=== PATIENT | female | born 1970 | race Caucasian/White ===

== ENCOUNTER → 2016-11-06 | Outpatient (CLI) | payer BC ==
[~2016-11-06] MED LIST: CIPR500T4 PO; LEVO125T71 PO
--- NOTE | 2016-11-06 14:38 | RADRPT ---
PROCEDURE: XR Abdomen. CLINICAL INDICATION: Abdomen pain. TECHNIQUE: AP supine abdomen x-ray. COMPARISON: Abdomen radiograph dated 01/25/2015. CT scan of the abdomen and pelvis dated 5. FINDINGS: The bowel gas pattern is normal. There is no evidence of obstruction. There are multiple small calcifications overlying both kidneys. There is a 0.2 cm calcification ove rlying the right ureterovesicle junction. There is no other urinary tract calculus. The osseus structures are unremarkable. IMPRESSION: 1. Multiple small bilateral renal calculi. 2. Calcification measuring 0.2 cm overlying the right ureterovesicle junction which may be a calcul us or other calcification. 3. Otherwise unremarkable study. RPTAT: QQ .Walker Cevallos MD, Date Time Electronically viewed and signed by .Walker Cevallos MD, on 11/06/2016 14:37 .R/
== END | disposition home or self-care (01) ==
LOC: RAD 10:00
PROVIDERS: ATTEND Urology
DX: N39.0 Urinary tract infection, site not specified (principal); R31.0 Gross hematuria; N20.0 Calculus of kidney
CPT/HCPCS: 74000; 87086

== ENCOUNTER 2016-12-24 21:10 | Emergency (ER) | payer BC ==
[~2016-12-24] VITALS: Ht 162.6 cm; Wt 79.5 kg
[2016-12-24 21:13] VITALS: Ht 162.6 cm; Wt 79.5 kg
[2016-12-24] MEDS ORDERED: ONDANSETRON 4 MG INJ IV STA (21:42)
[2016-12-24] MEDS ORDERED: morphine 4 MG/ML VIAL IV STA (21:42)
[2016-12-24] MEDS ORDERED: KETOROLAC 15 MG INJ IV STA ×2 (21:42→23:59)
[2016-12-24] MEDS ORDERED: SOD CHLORIDE 0.9% 1,000 ML IV STA (21:42)
[2016-12-24 21:54] LABS: URINE BLOOD (Dip) POC 3+ (NEGATIVE)
[2016-12-24 22:21] LABS: ADD SCAN DIFF NO
[2016-12-24 22:27] LABS: BASOPHIL # 0.1 10^3/ul (0.0-0.1); BASOPHILS % 0.7 % (0.0-2.0); EOSINOPHILS # 0.2 10^3/ul (0.0-0.5); EOSINOPHILS % 2.2 % (0.0-7.0); HEMATOCRIT 34.6 % (37.0-47.0); HEMOGLOBIN 10.9 g/dl (12.0-16.0); LYMPHOCYTES # 1.5 10^3/ul (0.8-2.9); LYMPHOCYTES % 16.3 % (15.0-51.0); MEAN CORPUSCULAR HEMOGLOBIN 28.8 pg (29.0-33.0); MEAN CORPUSCULAR HGB CONC 31.5 g/dl (32.0-37.0); MEAN CORPUSCULAR VOLUME 91.5 fl (82.0-101.0); MONOCYTE # 0.6 10^3/ul (0.3-0.9); MONOCYTES % 6.6 % (0.0-11.0); NEUTROPHIL # 6.7 10^3/ul (1.6-7.5); PLATELET COUNT 220 10^3/UL (140-415); RED BLOOD COUNT 3.78 10^6/ul (4.20-5.40); RED CELL DISTRIBUTION WIDTH 14.4 % (11.5-14.5); WHITE BLOOD COUNT 9.1 10^3/ul (4.8-10.8)
[2016-12-24 22:39] LABS: ALBUMIN 4.3 g/dl (3.3-4.9)
[2016-12-24 22:41] LABS: CREATININE 0.95 mg/dl (0.44-1.00)
[2016-12-24 22:42] LABS: ALBUMIN/GLOBULIN RATIO 1.3; BILIRUBIN,INDIRECT 0.2 mg/dl (0-1.1); BILIRUBIN,TOTAL 0.2 mg/dl (0.2-1.3); CALCIUM 8.8 mg/dl (8.4-10.2); TOTAL PROTEIN 7.6 g/dl (6.1-8.1)
[2016-12-24] MEDS ORDERED: morphine 2 MG INJ IV ONE (23:00)
--- NOTE | 2016-12-25 00:02 | ERD ---
ER Documentation Chief Complaint Date/Time DATE: 12/25/16 TIME: 00:00 Chief Complaint right flank pain, hxo kidney stones HPI This pleasant 46-year-old female presents to emergency department today with right-sided flank pain radiating to right groin symptoms started at 1400, pain is 9/10 on pain scale. Reports hematuria, nausea, without vomiting. Patient has long history of recurrent nephrolithiasis, patient reports lithotripsy a year and a half ago with stent placement. Patient reports that she was seen November 06, 2016 and had a abdominal x-ray, chart review indicates multiple small bilateral renal calculi calcification measuring 0.2 cm overlying right ureterovesiccle junction which may be a calculus or other calcification otherwise unremarkable study. Patient denies chest pain, shortness of breath, or dizziness. 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 ROS All systems reviewed and are negative except as per history of present illness. Medications Home Meds Active Scripts Hydrocodone/Acetaminophen (Darling 5-325 Tablet) 1 Each Tablet, 1 TAB PO Q6H Y for PAIN, #20 TAB Prov:LAKE,NAREN 12/25/16 Tamsulosin Hcl* (Flomax*) 0.4 Mg Cap.er.24h, 0.4 MG PO QPM, #10 CAP Prov:LAKE,NAREN 12/25/16 Reported Medications Ciprofloxacin Hcl* (Ciprofloxacin Hcl*) 500 Mg Tablet, 500 MG PO BID for 7 Days , TAB 12/07/14 Levothyroxine Sodium* (Levoxyl*) 125 Mcg Tablet, 125 MCG PO AC BREAKFAST, TAB 12/02/14 Allergies Allergies: Coded Allergies: levothyroxine sodium (Verified Allergy, Unknown, PRURITIS, 12/02/14) STATES ALLERTY TO BRAND SYNTHROID, GENERIC IS OKAY PMhx/Soc History of Surgery: Yes Anesthesia Reaction: No Hx Neurological Disorder: No Hx Respiratory Disorders: No Hx Cardiac Disorders: No Hx Psychiatric Problems: No Hx Miscellaneous Medical Probl: Yes (Kidney stones) Hx Alcohol Use: No Hx Substance Use: No Hx Tobacco Use: No Smoking Status: Never smoker Physical Exam Vitals Vitals stable, triage notes reviewed Physical Exam Const: Patient in obvious discomfort, no acute distress Head: Atraumatic Eyes: Normal Conjunctiva ENT: Normal External Ears, Nose and Mouth, mucous membranes moist Neck: Resp: Clear to auscultation bilaterally, diminished bases Cardio: Regular rate and rhythm, no murmurs Abd: Right inguinal tenderness, right CVA tenderness Skin: No petechiae or rashes Back: Right flank tenderness Ext: Neur: Awake and alert Psych: Normal Mood and Affect Results 24 hrs Laboratory Tests Test 12/24/16 21:50 12/24/16 21:55 12/24/16 23:58 White Blood Count 9.110^3/ul Red Blood Count 3.7810^6/ul Hemoglobin 10.9g/dl Hematocrit 34.6% Mean Corpuscular Volume 91.5fl Mean Corpuscular Hemoglobin 28.8pg Mean Corpuscular Hemoglobin Concent 31.5g/dl Red Cell Distribution Width 14.4% Platelet Count 69485^3/UL Mean Platelet Volume 11.0fl Neutrophils % 74.0% Lymphocytes % 16.3% Monocytes % 6.6% Eosinophils % 2.2% Basophils % 0.7% Nucleated Red Blood Cells % 0.0/100WBC Neutrophils # 6.710^3/ul Lymphocytes # 1.510^3/ul Monocytes # 0.610^3/ul Eosinophils # 0.210^3/ul Basophils # 0.110^3/ul Nucleated Red Blood Cells # 0.010^3/ul Sodium Level 139mmol/L Potassium Level 4.0mmol/L Chloride Level 102mmol/L Carbon Dioxide Level 25mmol/L Anion Gap 16 Blood Urea Nitrogen 16mg/dl Creatinine 0.95mg/dl Glucose Level 134mg/dl Calcium Level 8.8mg/dl Total Bilirubin 0.2mg/dl Direct Bilirubin 0.00mg/dl Indirect Bilirubin 0.2mg/dl Aspartate Amino Transf (AST/SGOT) 28IU/L Alanine Aminotransferase (ALT/SGPT) 22IU/L Alkaline Phosphatase 54IU/L Total Protein 7.6g/dl Albumin 4.3g/dl Globulin 3.30g/dl Albumin/Globulin Ratio 1.30 Lipase 117U/L Bedside Urine pH (LAB) 5.5 Bedside Urine Protein (LAB) 3+ Bedside Urine Glucose (UA) Negative Bedside Urine Ketones (LAB) Negative Bedside Urine Blood 3+ Bedside Urine Nitrite (LAB) Negative Bedside Urine Leukocyte Esterase (L Negative Urine Color RED Urine Clarity CLOUDY Urine pH 5.5 Urine Specific [place] >=1.030 Urine Ketones NEGATIVE Urine Nitrite NEGATIVE Urine Bilirubin 1+ Urine Ictotest NEGATIVE Urine Urobilinogen 0.2 E.U./dL Urine Leukocyte Esterase NEGATIVE Urine Microscopic RBC >200/HPF Urine Microscopic WBC NONE SEEN/HPF Urine Squamous Epithelial Cells FEW Urine Calcium Oxalate Crystals MODERATE Urine Bacteria FEW Urine Hemoglobin 3+ Urine Glucose NEGATIVE% Urine Total Protein 2+ Current Medications Medications (Trade) Dose Ordered Sig/Geovany Route PRN Reason Start Time Stop Time Status Last Admin Dose Admin Sodium Chloride (NS) 1,000 ml @ 1,000 mls/hr Q1H STAT IV 12/24/16 21:42 12/24/16 22:41 DC 12/24/16 22:01 Morphine Sulfate (morphine) 4 mg ONCE STAT IV 12/24/16 21:42 12/24/16 21:48 DC 12/24/16 22:02 Ondansetron HCl (Zofran Inj) 4 mg ONCE STAT IV 12/24/16 21:42 12/24/16 21:48 DC 12/24/16 22:01 Ketorolac Tromethamine (Toradol) 15 mg ONCE STAT IV 12/24/16 21:42 12/24/16 21:48 DC 12/24/16 22:01 Morphine Sulfate (morphine) 2 mg ONCE ONCE IV 12/24/16 23:00 12/24/16 23:01 DC 12/24/16 22:58 Ketorolac Tromethamine (Toradol) 15 mg ONCE STAT IV 12/24/16 23:59 12/25/16 00:00 DC 12/25/16 00:16 Acetaminophen/ Hydrocodone Bitart (Darling (5/325)) 1 tab ONCE ONCE PO 12/25/16 01:30 12/25/16 01:31 DC 12/25/16 01:14 Procedures/MDM PROCEDURE: CT abdomen and pelvis without contrast. CLINICAL INDICATION: Flank pain. Nephrolithiasis TECHNIQUE: CT scan of the abdomen and pelvis without contrast was performed. Sagittal and coronal reformatted images were obtained from the axial source images. CTDI = 11.98 mGy; DLP = 668.78 mGy-cm COMPARISON: CT 12/07/2014 FINDINGS: Visualized lower thorax: Mild dependent bibasilar subsegmental atelectasis is present. There is no evidence for pleural effusion. Liver, gallbladder, pancreas and spleen: The liver is normal and size, contour and attenuation. There is no evidence for a liver mass or ductal dilatation. The gallbladder is unremarkable. No common bile duct abnormality is demonstrated. The pancreas is unremarkable. The spleen is normal in size. Adrenal glands and genitourinary system: The adrenal glands are normal bilaterally. Approximately 19 right intrarenal calculi are noted ranging in size from 1 mm up to 4 mm in the interpolar region. Moderate right hydronephrosis is new compared to the prior study as is perinephric fat stranding without focal collection. The left-sided hydronephrosis seen previously has resolved. Approximately 8 left intrarenal calculi are now visible, decreased in size and number compared to the previous examination presumably from interval lithotripsy. The left intrarenal calculi now range from 1 mm up to 3 mm in size, the dominant left-sided calculus of 1.2 cm on the prior study no longer evident. The left ureter is normal. The right ureter is moderately dilated traceable to the crossing of the right iliac vessels, an approximately 4 x 3 mm calculus in the distal right ureter is noted the attenuation estimated at 700 HU (series 3 image 128). The distal right ureteral calculus is approximately 3 cm cephalad to the right the ureterovesical junction. No urinary bladder abnormality is demonstrated. The uterus is retroflexed with a slightly lobulated contour unable to exclude small leiomyomata. A right ovarian/adnexal bilobed cyst is larger than on the prior examination estimated at 7.8 x 3.8 cm ( series 3 image 129). Gastrointestinal system: The stomach is normal in caliber with no abnormality of significance. The small bowel is normal in caliber with no ileus, obstruction or wall thickening. The appendix and surrounding fat are within the limits of normal. The colon shows no evidence for wall thickening or acute abnormality. There is no evidence for colitis or diverticulitis. Peritoneum, retroperitoneum, lymph nodes and vessels: The abdominal aorta is normal in caliber. There is no evidence for atherosclerotic calcification. The inferior vena cava is unremarkable. There is no evidence for adenopathy or mass. There is no ascites. Osseous structures and musculoskeletal findings: There is no fracture, lytic or blastic lesion. Degenerative disk narrowing and vacuum phenomenon and L5-S1 is not significantly changed No muscular abnormality or soft tissue pathology is present. RPTAT:HJJR IMPRESSION: 1. Interval development of moderate right hydroureteronephrosis with associated perinephric inflammatory stranding since the prior study of 2014, the obstructive uropathy pattern traceable to a 4 x 3 mm distal right ureteral calculus located an estimated 3 cm cephalad to the right ureterovesical junction. 2. Numerous bilateral intrarenal calculi are similar to the prior CT of 2014 but there has been presumably interval left-sided lithotripsy with fragmentation of the dominant left intrarenal calculus seen on the prior study and resolution of prior left hydronephrosis. 3. Enlargement of a bilobed appearing right ovarian/adnexal cyst. Consideration should be given for sonographic follow-up. This pleasant 46-year-old female presents to emergency department for pain control of nephrolithiasis. Patient has long-standing history of multiple renal calculi with lithotripsy and stent placement a year and a half ago. Patient reports hematuria and pain 9 out of 10 started at 1400 today. 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 Differential diagnosis includes but not limited to renal lithiasis, renal calculi, renal colic. Urinary tract infection, pyelonephritis. Pain treated with 4 mg of morphine and 15 mg of Toradol. Laboratory testing unremarkable for evidence of acute renal abnormality. Acute infection or blood loss. Urinalysis shows gross hematuria without nitrates or leukocytosis. 1 L of fluid provided. Patient reassessed after interventions pain continues to be uncontrolled, 2 mg of morphine given along with order for CAT scan. CAT scan results are pending at this time. Patient reassessed pain continues to be 5-4/ 10 on pain scale additional 15 mg of Toradol given. CAT scan abdomen and pelvis findings as followed Interval development of moderate right hydronephrosis with associated perinephric inflammatory stranding since prior study of 12/07/2014. The obstructive uropathy pattern traceable to a 4 x 3 mm distal right ureteral calculus located in segment 3 cm cephalad to the right ureterovesical junction Numerous bilateral intrarenal calculi are similar to the prior CT of 12/07/2014 but there has been presumably interval left-sided lithotripsy with fragmentation of the dominant left intrarenal calculus seen on the prior study and resolution of prior left hydronephrosis. Enlargement of a bilobed appearing right ovarian/adnexal cyst. Patient treated for pain while in emergency department with morphine, plan to discharge home with Darling, Flomax, and to follow-up with nephrology. Return to emergency department for worsening of pain, inability to pass urine, chest pain, nausea, vomiting, dizziness. I feel the patient is stable for discharge and management by specialist. I have discussed results, examination findings, the treatment plan with the patient and family present prior to discharge. Indications for emergent reevaluation, side effects of medication were also discussed. All questions were answered. Patient verbalizes understanding and agrees with plan of care. Departure Diagnosis: Primary Impression: Kidney stone Condition: Good Additional Instructions: Thank you for for coming to [facility] for your care today. Please ask your nurse or provider if you have questions about your care today and do not leave until all your questions have been answered. Please use any medications given as directed and follow-up with your doctor (or the doctor you were referred to) in the next 2-3 days. If you do not have a primary care doctor you may follow up at the [facility] (listed below). You may also use motrin and tylenol as needed for fever and/or pain unless instructed otherwise by your provider or nurse. Indications for more urgent follow-up have been discussed, but you may return to the Emergency Department at ANY time for any worrisome or worsening symptoms. If you have abdominal pain, please know that no test or exam you received is perfect and you should follow up within 8 hours for continued pain. If you had any imaging studies today, such as an X-Ray or CT Scan, these studies will be reviewed later by a radiologist. You will be called if there are important findings that were not identified today, so make sure the contact information you provided at registration is correct. If you received any narcotic pain control medicine today, such as Vicodin, Morphine or Dilaudid, your coordination and judgment may be affected for a number of hours. Please do not drive or operate heavy machinery, and you may want someone to assist you at home. If you were given a prescription for narcotic medication, be aware that it is very addictive- use sparingly and only if necessary. NAREN BETHEA Dec 25, 2016 00:02
--- NOTE | 2016-12-25 00:11 | RADRPT ---
PROCEDURE: CT abdomen and pelvis without contrast. CLINICAL INDICATION: Flank pain. Nephrolithiasis TECHNIQUE: CT scan of the abdomen and pelvis without contrast was performed. Sagittal and coronal reformatted images were obtained from the axial source images. CTDI = 11.98 mGy; DLP = 668.78 mGy-c m COMPARISON: CT 12/07/2014 FINDINGS: Visualized lower thorax: Mild dependent bibasilar subsegmental atelectasis is present. There is no evidence for pleural effusion. Liver, gallbladder, pancreas and spleen: The liver is normal and size, contour and attenuation. Th ere is no evidence for a liver mass or ductal dilatation. The gallbladder is unremarkable. No comm on bile duct abnormality is demonstrated. The pancreas is unremarkable. The spleen is normal in si ze. Adrenal glands and genitourinary system: The adrenal glands are normal bilaterally. Approximately 1 9 right intrarenal calculi are noted ranging in size from 1 mm up to 4 mm in the interpolar region. Moderate right hydronephrosis is new compared to the prior study as is perinephric fat stranding wi thout focal collection. The left-sided hydronephrosis seen previously has resolved. Approximately 8 left intrarenal calculi are now visible, decreased in size and number compared to the previous exa mination presumably from interval lithotripsy. The left intrarenal calculi now range from 1 mm up t o 3 mm in size, the dominant left-sided calculus of 1.2 cm on the prior study no longer evident. Th e left ureter is normal. The right ureter is moderately dilated traceable to the crossing of the ri ght iliac vessels, an approximately 4 x 3 mm calculus in the distal right ureter is noted the attenu ation estimated at 700 HU (series 3 image 128). The distal right ureteral calculus is approximately 3 cm cephalad to the right the ureterovesical junction. No urinary bladder abnormality is demonstra peewee. The uterus is retroflexed with a slightly lobulated contour unable to exclude small leiomyomat a. A right ovarian/adnexal bilobed cyst is larger than on the prior examination estimated at 7.8 x 3.8 cm (series 3 image 129). Gastrointestinal system: The stomach is normal in caliber with no abnormality of significance. The small bowel is normal in caliber with no ileus, obstruction or wall thickening. The appendix and s urrounding fat are within the limits of normal. The colon shows no evidence for wall thickening or acute abnormality. There is no evidence for colitis or diverticulitis. Peritoneum, retroperitoneum, lymph nodes and vessels: The abdominal aorta is normal in caliber. The re is no evidence for atherosclerotic calcification. The inferior vena cava is unremarkable. There is no evidence for adenopathy or mass. There is no ascites. Osseous structures and musculoskeletal findings: There is no fracture, lytic or blastic lesion. Deg enerative disk narrowing and vacuum phenomenon and L5-S1 is not significantly changed No muscular a bnormality or soft tissue pathology is present. RPTAT:HJJR IMPRESSION: 1. Interval development of moderate right hydroureteronephrosis with associated perinephric inflamm atory stranding since the prior study of 12/07/2014, the obstructive uropathy pattern traceable to a 4 x 3 mm distal right ureteral calculus located an estimated 3 cm cephalad to the right ureterovesi guillermo junction. 2. Numerous bilateral intrarenal calculi are similar to the prior CT of 12/07/2014 but there has be en presumably interval left-sided lithotripsy with fragmentation of the dominant left intrarenal guillermo culus seen on the prior study and resolution of prior left hydronephrosis. 3. Enlargement of a bilobed appearing right ovarian/adnexal cyst. Consideration should be given fo r sonographic follow-up. Physician Reece Date Time Electronically viewed and signed by Physician Reece on 12/25/2016 00:11 JR/
[2016-12-25 00:21] LABS: ADD UMIC YES; URINE BILIRUBIN (Dip) 1+ (NEGATIVE); URINE BLOOD (Dip) 3+ (NEGATIVE); URINE COLOR RED (YELLOW); URINE GLUCOSE (Dip) NEGATIVE (NEGATIVE); URINE KETONES (Dip) NEGATIVE (NEGATIVE); URINE LEUKOCYTE ESTERASE (Dip) NEGATIVE (NEGATIVE); URINE NITRITE (Dip) NEGATIVE (NEGATIVE); URINE TOTAL PROTEIN (Dip) 2+ (NEGATIVE); URINE UROBILINOGEN (Dip) 0.2 E.U./dL (0.1-1.0)
[2016-12-25 00:30] LABS: ICTOTEST NEGATIVE (NEGATIVE); SQUAMOUS EPITHELIAL CELL,UR FEW; URINE RBCS >200 /HPF (0)
[2016-12-25 00:31] LABS: BACTERIA,URINE FEW
[2016-12-25] MEDS ORDERED: TAMS-14 PO (01:10)
[2016-12-25] MEDS ORDERED: HYDR-906 PO (01:10)
[2016-12-25] MEDS ORDERED: HYDROCODONE/APAP (5/325) TAB PO ONE (01:30)
[2016-12-25 01:32] VITALS: BP 134/71; PULSE 77; RESP 18
== END 2016-12-25 01:33 | disposition home or self-care (01) ==
LOC: EEVIPCON 21:10 → FTE 21:10
DX: N20.0 Calculus of kidney (principal); R11.0 Nausea; E03.9 Hypothyroidism, unspecified
CPT/HCPCS: 74176; 80053; 81001; 83690; 85025; J1885; J2270; J2405; J7030; 36415; 81003; 96374; 96375; 96376

== ENCOUNTER 2017-08-24 09:20 | Emergency (ER) | payer BC ==
[~2017-08-24] VITALS: Ht 170.2 cm; Wt 79.7 kg
[~2017-08-24 09:20] MED LIST changes: +HYDR-906 PO; +TAMS-14 PO
[2017-08-24 09:22] VITALS: Ht 170.2 cm; Wt 79.7 kg
[2017-08-24] MEDS ORDERED: SOD CHLORIDE 0.9% 1,000 ML IV STA (10:28)
[2017-08-24] MEDS ORDERED: KETOROLAC 15 MG INJ IV STA (10:49)
[2017-08-24] MEDS ORDERED: ONDANSETRON 4 MG INJ IV STA (10:49)
[2017-08-24] MEDS ORDERED: morphine 4 MG/ML VIAL IV STA (10:49)
[2017-08-24 10:58] LABS: BASOPHIL # 0.1 10^3/ul (0.0-0.1); EOSINOPHILS # 0.2 10^3/ul (0.0-0.5); EOSINOPHILS % 4.2 % (0.0-7.0); HEMOGLOBIN 11.1 g/dl (12.0-16.0); LYMPHOCYTES # 1.7 10^3/ul (0.8-2.9); LYMPHOCYTES % 28.7 % (15.0-51.0); MEAN CORPUSCULAR HGB CONC 32.6 g/dl (32.0-37.0); MEAN CORPUSCULAR VOLUME 91.9 fl (82.0-101.0); MEAN PLATELET VOLUME 10.4 fl (7.4-10.4); MONOCYTE # 0.4 10^3/ul (0.3-0.9); MONOCYTES % 7.5 % (0.0-11.0); NEUTROPHIL # 3.4 10^3/ul (1.6-7.5); NEUTROPHILS % 58.4 % (39.0-77.0); PLATELET COUNT 259 10^3/UL (140-415); RED CELL DISTRIBUTION WIDTH 13.2 % (11.5-14.5); WHITE BLOOD COUNT 5.8 10^3/ul (4.8-10.8)
--- NOTE | 2017-08-24 11:07 | RADRPT ---
PROCEDURE: Renal US. CLINICAL INDICATION: History of renal calculi. TECHNIQUE: Multiple sonographic images of the kidneys and urinary bladder were obtained. The imag es were reviewed on a PACS workstation. COMPARISON: CT scan of the abdomen and pelvis dated December 24, 2016 which demonstrated bilateral re nal calculi and moderate right hydronephrosis. FINDINGS: The right kidney measures 10.3 cm. The left kidney measures 9.7 cm. There is no solid renal mass. There is a benign cyst in the lower left kidney measuring 1.2 cm. There is moderate right hydronephrosis, improved. There is no left hydronephrosis. There are small nonobstructing bilateral renal calculi. Renal parenchymal thickness is normal bilaterally. Echogenicity is normal bilaterally. The perirenal regions are normal with no fluid collection or mass. The urinary bladder is unremarkable. IMPRESSION: 1. Benign 1.2 cm cyst in the lower left kidney. 2. Moderate right hydronephrosis, improved when compared with December 24, 2016. 3. No left hydronephrosis. 4. Small nonobstructing bilateral renal calculi. RPTAT: QQ .Walker Cevallos MD, Date Time Electronically viewed and signed by .Walker Cevallos MD, on 08/24/2017 11:07 .R/
--- NOTE | 2017-08-24 11:17 | ERD ---
ER Documentation Chief Complaint Chief Complaint rt flank pain with nausea since last night HPI This is a 47-year-old female with a history of nephrolithiasis presenting to the emergency department complaining of moderate 5 out of 10 right flank pain with associated nausea since last night. She has a urologist that she follows up with Dr. Tomlinson and had lithotripsy about couple years ago. Patient states that last time she has been evaluated at this facility was in November in which she has received a CT scan and she was discharged that day. She states that she took ibuprofen prior to being seen which did not give her that much relief. She denies any vomiting, fevers. Denies any dysuria ROS All systems reviewed and are negative except as per history of present illness. Medications Home Meds Active Scripts Ibuprofen* (Ibuprofen*) 400 Mg Tablet, 400 MG PO Q6H Y for PAIN, #30 TAB Prov:SHEBA CORREIA PA-C 08/24/17 Hydrocodone/Acetaminophen ([place] 5-325 Tablet) 1 Each Tablet, 1 EACH PO Q6, #30 TAB Prov:SHEBA CORREIA PA-C 08/24/17 Hydrocodone/Acetaminophen ([place] 5-325 Tablet) 1 Each Tablet, 1 TAB PO Q6H Y for PAIN, #20 TAB Prov:LAKE,NAREN 12/25/16 Tamsulosin Hcl* (Flomax*) 0.4 Mg Cap.er.24h, 0.4 MG PO QPM, #10 CAP Prov:LAKE,NAREN 12/25/16 Reported Medications Ciprofloxacin Hcl* (Ciprofloxacin Hcl*) 500 Mg Tablet, 500 MG PO BID for 7 Days , TAB 12/07/14 Levothyroxine Sodium* (Levoxyl*) 125 Mcg Tablet, 125 MCG PO AC BREAKFAST, TAB 12/02/14 Allergies Allergies: Coded Allergies: levothyroxine sodium (Verified Allergy, Unknown, PRURITIS, 08/24/17) STATES ALLERTY TO BRAND SYNTHROID, GENERIC IS OKAY PMhx/Soc Medical and Surgical Hx: pt denies Surgical Hx History of Surgery: Yes Anesthesia Reaction: No Hx Neurological Disorder: No Hx Respiratory Disorders: No Hx Cardiac Disorders: No Hx Psychiatric Problems: No Hx Miscellaneous Medical Probl: Yes (Kidney stones) Hx Alcohol Use: No Hx Substance Use: No Hx Tobacco Use: No Smoking Status: Never smoker Physical Exam Vitals Vital Signs Date Time Temp Pulse Resp B/P Pulse Ox O2 Delivery O2 Flow Rate FiO2 08/24/17 09:22 98.1 83 18 143/77 98 Physical Exam GENERAL: well-developed/well-nourished, in no apparent distress, non-toxic appearing HENT: NC/AT, moist mucous membranes EYES: Conjunctiva normal NECK: Supple, no lymphadenopathy PULM: CTA bilaterally, no rales, rhonchi, or wheezing heard CV: Normal S1S2, RRR, good capillary refill GI: Soft, non-distended nontender to palpation Normal bowel sounds, no masses or organomegaly felt on exam No gross peritonitis, no bruits Negative Rovsing, negative Giang, negative McBurney's point, Negative CVAT BACK: No masses EXT: No clubbing, cyanosis, or edema NEURO: Alert and Orientated SKIN: Intact, normal turgor PSYCH: Normal mood and mentation Result Diagram: 08/24/17 1033 08/24/17 1033 Results 24 hrs Laboratory Tests Test 08/24/17 10:33 White Blood Count 5.810^3/ul Red Blood Count 3.7010^6/ul Hemoglobin 11.1g/dl Hematocrit 34.0% Mean Corpuscular Volume 91.9fl Mean Corpuscular Hemoglobin 30.0pg Mean Corpuscular Hemoglobin Concent 32.6g/dl Red Cell Distribution Width 13.2% Platelet Count 53883^3/UL Mean Platelet Volume 10.4fl Neutrophils % 58.4% Lymphocytes % 28.7% Monocytes % 7.5% Eosinophils % 4.2% Basophils % 1.0% Nucleated Red Blood Cells % 0.0/100WBC Neutrophils # 3.410^3/ul Lymphocytes # 1.710^3/ul Monocytes # 0.410^3/ul Eosinophils # 0.210^3/ul Basophils # 0.110^3/ul Nucleated Red Blood Cells # 0.010^3/ul Urine Color YELLOW Urine Clarity SLIGHTLY CLOUDY Urine pH 5.0 Urine Specific [place] 1.026 Urine Ketones NEGATIVEmg/dL Urine Nitrite NEGATIVEmg/dL Urine Bilirubin NEGATIVEmg/dL Urine Urobilinogen NEGATIVEmg/dL Urine Leukocyte Esterase NEGATIVELeu/ul Urine Microscopic RBC 86/HPF Urine Microscopic WBC 4/HPF Urine Squamous Epithelial Cells FEW/HPF Urine Calcium Oxalate Crystals FEW/HPF Urine Bacteria FEW/HPF Urine Mucus MODERATE/HPF Urine Hemoglobin 3+mg/dL Urine Glucose NEGATIVEmg/dL Urine Total Protein 1+mg/dl Sodium Level 142mmol/L Potassium Level 4.5mmol/L Chloride Level 104mmol/L Carbon Dioxide Level 28mmol/L Anion Gap 15 Blood Urea Nitrogen 16mg/dl Creatinine 0.96mg/dl Glucose Level 105mg/dl Calcium Level 9.1mg/dl Total Bilirubin 0.1mg/dl Direct Bilirubin 0.00mg/dl Indirect Bilirubin 0.1mg/dl Aspartate Amino Transf (AST/SGOT) 29IU/L Alanine Aminotransferase (ALT/SGPT) 38IU/L Alkaline Phosphatase 68IU/L Total Protein 7.7g/dl Albumin 4.3g/dl Globulin 3.40g/dl Albumin/Globulin Ratio 1.26 Lipase 150U/L Current Medications Medications (Trade) Dose Ordered Sig/Geovany Route PRN Reason Start Time Stop Time Status Last Admin Dose Admin Sodium Chloride (NS) 1,000 ml @ 1,000 mls/hr Q1H STAT IV 08/24/17 10:28 08/24/17 11:27 DC 08/24/17 10:53 Morphine Sulfate (morphine) 4 mg ONCE STAT IV 08/24/17 10:49 08/24/17 10:50 DC 08/24/17 10:53 Ondansetron HCl (Zofran Inj) 4 mg ONCE STAT IV 08/24/17 10:49 08/24/17 10:50 DC 08/24/17 10:53 Ketorolac Tromethamine (Toradol) 15 mg ONCE STAT IV 08/24/17 10:49 08/24/17 10:50 DC 08/24/17 10:53 Procedures/MDM This is a 47-year-old female presenting to the emergency department with history of nephrolithiasis presenting with right flank pain associated with nausea since last night. Patient is well-appearing, she has stable vital signs , she is afebrile and nontoxic. She does not seem to be in significant pain and she rates her pain moderate in severity. Patient last visit was in November and she received a CT scan which showed that she had renal stone of 4 mm in the distal right ureteral c and at the centimeter in the right ureterovesical junction. Lab work was drawn. CBC did not show any evidence of leukocytosis or anemia. CMP did not show any evidence of renal, liver, or electrolyte abnormalities. Lipase was normal. UA did not show any evidence of hemoglobin or urinary tract infection. Renal ultrasound was done today and it showed moderate right hydronephrosis that has improved since November. Patient was given morphine and Zofran with 1 L of fluids and I have reassessed her and she states that her pain has significantly improved. I have discussed the risks of a CT scan and I discussed with patient that since she is not in significant pain she is afebrile with normal lab work that it is likely best that we withhold a CT scan since she has been getting numerous studies in the past. Patient agrees with this. I discussed with her return to the ER for any worsening signs noted patient understands and agrees this plan. Stable to be discharged home Renal US: 1. Benign 1.2 cm cyst in the lower left kidney. 2. Moderate right hydronephrosis, improved when compared with December 24, 2016. 3. No left hydronephrosis. 4. Small nonobstructing bilateral renal calculi. CT abd pelvis without contrast 11/2016: moderate right hydroureteronephrosis with associated perinephric inflammatory stranding since the prior study of 05/2015, the obstructive uropathy pattern traceable to a 4 x 3 mm distal right ureteral calculus located an estimated 3 cm cephalad to the right ureterovesical junction Departure Diagnosis: Primary Impression: Kidney stone Condition: Stable SHEBA CORREIA PA-C Aug 24, 2017 11:16
[2017-08-24 11:23] LABS: ALBUMIN 4.3 g/dl (3.3-4.9); ALBUMIN/GLOBULIN RATIO 1.26; BILIRUBIN,INDIRECT 0.1 mg/dl (0-1.1); BILIRUBIN,TOTAL 0.1 mg/dl (0.2-1.3); CALCIUM 9.1 mg/dl (8.4-10.2); CREATININE 0.96 mg/dl (0.44-1.00); POTASSIUM 4.5 mmol/L (3.5-5.1); TOTAL PROTEIN 7.7 g/dl (6.1-8.1)
[2017-08-24 11:49] LABS: ADD UMIC YES; UR ASCORBIC ACID NEGATIVE (NEGATIVE); UR BACTERIA FEW /HPF (NONE SEEN); UR BILIRUBIN (Dip) NEGATIVE (NEGATIVE); UR BLOOD (Dip) 3+ mg/dL (NEGATIVE); UR CLARITY SLIGHTLY CLOUDY (CLEAR); UR COLOR YELLOW (YELLOW); UR GLUCOSE (Dip) NEGATIVE (NEGATIVE); UR KETONES (Dip) NEGATIVE (NEGATIVE); UR LEUKOCYTE ESTERASE (Dip) NEGATIVE Leu/ul (NEGATIVE); UR MUCUS MODERATE /HPF (NONE SEEN); UR NITRITE (Dip) NEGATIVE (NEGATIVE); UR RBC 86 /HPF (0-5); UR SPECIFIC GRAVITY (Dip) 1.026 (1.003-1.030); UR SQUAMOUS EPITHELIAL CELL FEW /HPF (FEW); UR TOTAL PROTEIN (Dip) 1+ mg/dl (NEGATIVE); UR UROBILINOGEN (Dip) NEGATIVE (NEGATIVE)
[2017-08-24] MEDS ORDERED: IBUP400T22 PO (11:52)
[2017-08-24] MEDS ORDERED: HYDR-906 PO (11:52)
== END 2017-08-24 12:24 | disposition home or self-care (01) ==
LOC: FTE 09:20
DX: N20.0 Calculus of kidney (principal); R11.0 Nausea
CPT/HCPCS: 36415; 76775; 80053; 81001; 83690; 85025; 96374; 96375; 99285; J1885; J2270; J2405; J7030

== ENCOUNTER 2017-11-27 12:04 | Emergency (ER) | END 2017-11-27 14:49 | disposition home or self-care (01) ==

== ENCOUNTER → 2018-12-21 | Outpatient (CLI) | payer BC ==
[~2018-12-21] MED LIST changes: +AMOX1TAB10 PO; +HYDR-4011 PO; -HYDR-906 PO; +IBUP-1541 PO
== END | disposition home or self-care (01) ==
LOC: LAB 14:23
PROVIDERS: ATTEND Internal Medicine
DX: E55.9 Vitamin D deficiency, unspecified (principal); D53.9 Nutritional anemia, unspecified; E03.9 Hypothyroidism, unspecified; E78.5 Hyperlipidemia, unspecified
CPT/HCPCS: 80053; 80061; 82652; 82728; 84439; 84443; 85025